=== PATIENT | male | born 1955 | race Caucasian/White ===

== ENCOUNTER 2022-05-22 09:40 | Emergency (ER) | payer MEDICAID, OTHER ==
[2022-05-22 09:50] VITALS: BP 112/71; PULSE 66
[2022-05-22] MEDS ORDERED: Diphtheria,Pertussis(Acell),Tetanus Vaccine 0.5 ML Syringe IM ONE (10:28)
== END 2022-05-22 13:43 | disposition home or self-care (01) ==
LOC: JD.ED 09:40
DX: T20.10XA Burn of first degree of head, face, and neck, unspecified site, initial encounter (principal); J44.9 Chronic obstructive pulmonary disease, unspecified; F17.210 Nicotine dependence, cigarettes, uncomplicated; Z23 Encounter for immunization; Z91.041 Radiographic dye allergy status; X08.8XXA Exposure to other specified smoke, fire and flames, initial encounter
CPT/HCPCS: 36415; 71045; 71045-26; 80053; 85025; 90471; 90715; 99283; 99283-25

== ENCOUNTER 2022-08-19 10:07 | Emergency (ER) | payer MEDICARE, MEDICAID ==
[2022-08-19 11:01] VITALS: BP 123/72; PULSE 52
== END 2022-08-19 12:55 | disposition home or self-care (01) ==
LOC: JD.ED 10:07
DX: J44.1 Chronic obstructive pulmonary disease with (acute) exacerbation (principal); F17.210 Nicotine dependence, cigarettes, uncomplicated; Z91.041 Radiographic dye allergy status; Z79.899 Other long term (current) drug therapy; Z86.16 Personal history of COVID-19; Z20.822 Contact with and (suspected) exposure to COVID-19
CPT/HCPCS: 36415; 71046; 71046-26; 80053; 85025; 86140; 99284; U0002

== ENCOUNTER 2022-10-19 11:25 | Emergency (ER) | payer MEDICARE, MEDICAID ==
[2022-10-19] MEDS ORDERED: Sodium Chloride 0.9% 10 ML Syringe FLUSH PRN (11:46)
[2022-10-19] MEDS ORDERED: Albuterol/Ipratropium 3.0-0.5 MG/3 ML Neb Soln NEB ONE (12:21)
[2022-10-19] MEDS ORDERED: methylPREDNISolone Sodium Succinate 125 MG/2 ML SDV IVPUSH ONE (12:22)
[2022-10-19 14:15] LABS: CORONAVIRUS COVID-19 NAA POSITIVE (NEGATIVE)
[2022-10-19] MEDS ORDERED: methylPREDNISolone Sodium Succinate 125 MG/2 ML SDV IVPUSH PRN (14:43)
[2022-10-19] MEDS ORDERED: diphenhydrAMINE 50 MG/ML SDV IVPUSH PRN (14:43)
[2022-10-19] MEDS ORDERED: Famotidine 20 MG/2 ML SDV IVPUSH PRN (14:43)
[2022-10-19] MEDS ORDERED: EPINEPHrine 1 MG/ML SDV IM PRN (14:43)
[2022-10-19] MEDS ORDERED: Sodium Chloride 0.9% 10 ML Syringe FLUSH SCH (14:45)
[2022-10-19 15:06] VITALS: BP 119/74; PULSE 61
== END 2022-10-19 16:27 | disposition home or self-care (01) ==
LOC: JD.ED 11:25
DX: U07.1 COVID-19 (principal); J44.9 Chronic obstructive pulmonary disease, unspecified; Z72.0 Tobacco use; Z91.041 Radiographic dye allergy status; Z79.899 Other long term (current) drug therapy
CPT/HCPCS: 0240U; 36415; 36600; 71046; 80053; 82803; 83735; 85025; 86140; 93005; 94640; 96374; 99285; J2930; J3490; M0222; Q0222; J7620-GY

== ENCOUNTER 2023-08-24 13:40 | Emergency (ER) | payer MEDICAID, MEDICARE ==
[2023-08-24] MEDS ORDERED: Lactated Ringers 1,000 ML IV ONE (13:41)
[2023-08-24 13:53] VITALS: BP 148/97; PULSE 76
[2023-08-24] MEDS ORDERED: propofoL 100 ML ONE ×2 (14:29→16:12)
[2023-08-24 14:36] LABS: BASOPHILS ABSOLUTE AUTO 0.1 K/mm3 (0.0-0.2); BASOPHILS PERCENT AUTO 0.3 % (0.0-1.0); EOSINOPHILS ABSOLUTE AUTO 0.1 K/mm3 (0.0-0.4); EOSINOPHILS PERCENT AUTO 0.8 % (0.0-6.0); HEMATOCRIT 49.1 % (42.0-52.0); HEMOGLOBIN 16.3 gm/dl (14.0-18.0); IMMATURE GRAN ABSOLUTE AUTO 0.06 K/mm3 (0.00-0.05); IMMATURE GRAN PERCENT AUTO 0.4 % (0.0-0.4); LYMPHOCYTES ABSOLUTE AUTO 2.5 K/mm3 (1.0-4.8); LYMPHOCYTES PERCENT AUTO 16.7 % (24.0-44.0); MEAN CORPUSCULAR HGB CONC 33.2 g/dl (32.0-36.0); MEAN CORPUSCULAR VOLUME 90.3 fl (83.0-99.0); MEAN PLATELET VOLUME 9.5 fl (9.4-12.4); MONOCYTES ABSOLUTE AUTO 0.9 K/mm3 (0.0-0.8); MONOCYTES PERCENT AUTO 6.2 % (0.0-8.0); NEUTROPHILS ABSOLUTE AUTO 11.2 K/mm3 (1.8-7.7); NEUTROPHILS PERCENT AUTO 75.6 % (41.0-71.0); PLATELET COUNT,PLT 249 K/mm3 (150-400); RED BLOOD CELL COUNT 5.44 M/mm3 (4.52-5.90); WHITE BLOOD CELL COUNT,WBC 14.77 K/mm3 (3.9-11.3)
[2023-08-24 14:42] LABS: BASE EXCESS ARTERIAL -9.6 (-2-2.0); BICARBONATE,ARTERIAL 21.6 meq/L (22.0-26.0); O2 SATURATION ARTERIAL 99.2 % (96.0-97.0)
[2023-08-24 14:44] LABS: PROTHROMBIN TIME 9.8 SECONDS (9.7-12.0)
[2023-08-24 14:45] LABS: INR < 0.93; PTT,PARTIAL THROMBOPLSTIN TIME 24.9 SECONDS (21.7-31.4)
[2023-08-24 14:50] LABS: A/G RATIO 1.3 (1-2); ALBUMIN 4.2 g/dl (3.4-5.0); ANION GAP 9.6 (5-15); BILIRUBIN TOTAL 0.7 mg/dL (0.2-1.0); BUN/CREATININE RATIO 18.8 (14-18); CREATININE 0.8 mg/dL (0.7-1.3); EST CRCL DRUG DOSING (CG) 93.53 mL/min; MAGNESIUM 2.2 mg/dL (1.8-2.4); POTASSIUM,K 3.6 mEq/L (3.5-5.1); PROTEIN TOTAL,TP 7.5 g/dl (6.4-8.2)
[2023-08-24] MEDS ORDERED: Propofol 200 MG/20 ML SDV ONE ×2 (15:00)
[2023-08-24] MEDS ORDERED: EPINEPHrine 1:10,000 1 MG/10 ML Syringe ONE ×2 (15:00)
[2023-08-24] MEDS ORDERED: Succinylcholine 200 MG/10 ML MDV ONE (15:00)
[2023-08-24] MEDS ORDERED: Amiodarone 150 MG/3 ML SDV ONE (15:00)
[2023-08-24] MEDS ORDERED: Heparin Sodium 5,000 Units/ML Vial ONE (15:00)
[2023-08-24] MEDS ORDERED: Tenecteplase 50 MG Kit ONE (15:02)
[2023-08-24] MEDS ORDERED: Ketamine 500 MG in Sodium Chloride 0.9% 490 ML IV SCH (15:15)
[2023-08-24] MEDS ORDERED: HEPARIN SODIUM IV SCH (15:20)
[2023-08-24] MEDS ORDERED: D5W IV SCH (15:20)
[2023-08-24 16:10] LABS: BASE EXCESS ARTERIAL 1.6 (-2-2.0); BICARBONATE,ARTERIAL 28.4 meq/L (22.0-26.0)
== END 2023-08-24 16:30 ==
LOC: JD.ED 13:40
DX: I21.3 ST elevation (STEMI) myocardial infarction of unspecified site (principal); M06.9 Rheumatoid arthritis, unspecified; J43.9 Emphysema, unspecified; Z86.16 Personal history of COVID-19; Z91.041 Radiographic dye allergy status; Z79.82 Long term (current) use of aspirin; Z79.899 Other long term (current) drug therapy
CPT/HCPCS: 31500; 36415; 36600; 43752; 51702; 71045; 80053; 82803; 83605; 83735; 84484; 85025; 85610; 85730; 92950; 92977; 93005; 96365; 99285; J0171; J0282; J0330; J1644; J2704; J3101; J3490; J7040; J7120; 93010

== ENCOUNTER 2023-10-07 14:56 | Emergency (ER) | payer MEDICARE, MEDICAID ==
[2023-10-07 16:44] LABS: BASOPHILS PERCENT AUTO 0.5 % (0.0-1.0); EOSINOPHILS ABSOLUTE AUTO 0.2 K/mm3 (0.0-0.4); EOSINOPHILS PERCENT AUTO 2.3 % (0.0-6.0); HEMATOCRIT 38.6 % (42.0-52.0); HEMOGLOBIN 12.1 gm/dl (14.0-18.0); IMMATURE GRAN ABSOLUTE AUTO 0.03 K/mm3 (0.00-0.05); IMMATURE GRAN PERCENT AUTO 0.3 % (0.0-0.4); LYMPHOCYTES ABSOLUTE AUTO 2.5 K/mm3 (1.0-4.8); LYMPHOCYTES PERCENT AUTO 28.5 % (24.0-44.0); MEAN CORPUSCULAR HEMOGLOBIN 28.1 pg (28.0-32.0); MEAN CORPUSCULAR HGB CONC 31.3 g/dl (32.0-36.0); MEAN CORPUSCULAR VOLUME 89.6 fl (83.0-99.0); MEAN PLATELET VOLUME 9.6 fl (9.4-12.4); MONOCYTES ABSOLUTE AUTO 0.8 K/mm3 (0.0-0.8); MONOCYTES PERCENT AUTO 8.7 % (0.0-8.0); NEUTROPHILS ABSOLUTE AUTO 5.2 K/mm3 (1.8-7.7); NEUTROPHILS PERCENT AUTO 59.7 % (41.0-71.0); PLATELET COUNT,PLT 259 K/mm3 (150-400); RED BLOOD CELL COUNT 4.31 M/mm3 (4.52-5.90); WHITE BLOOD CELL COUNT,WBC 8.74 K/mm3 (3.9-11.3)
[2023-10-07 17:05] LABS: INR 0.96; PROTHROMBIN TIME 10.3 SECONDS (9.7-12.0)
[2023-10-07 17:07] LABS: PTT,PARTIAL THROMBOPLSTIN TIME 28.1 SECONDS (21.7-31.4)
[2023-10-07 17:10] LABS: A/G RATIO 0.8 (1-2); ALBUMIN 2.9 g/dl (3.4-5.0); ANION GAP 10.8 (5-15); BILIRUBIN TOTAL 0.4 mg/dL (0.2-1.0); CALCIUM 8.5 mg/dL (8.5-10.1); CREATININE 0.7 mg/dL (0.7-1.3); EST CRCL DRUG DOSING (CG) 105.23 mL/min; POTASSIUM,K 3.8 mEq/L (3.5-5.1); PROTEIN TOTAL,TP 6.5 g/dl (6.4-8.2)
[2023-10-07 17:39] LABS: APPEARANCE,URINE CLEAR (Clear); BILIRUBIN,URINE NEGATIVE (Negative); COLOR,URINE YELLOW (Yellow); GLUCOSE,URINE NEGATIVE (Negative); KETONES,URINE NEGATIVE (Negative); LEUKOCYTE ESTERASE,URINE NEGATIVE (Negative); NITRITE,URINE NEGATIVE (Negative); OCCULT BLOOD,URINE NEGATIVE (Negative); PROTEIN,URINE NEGATIVE (Negative); UROBILINOGEN,URINE 0.2 (0.2-1.0)
[2023-10-07 18:06] LABS: CORONAVIRUS COVID-19 NAA NEGATIVE (NEGATIVE); INFLUENZA A NAA NEGATIVE (NEGATIVE)
[2023-10-07] MEDS ORDERED: Doxycycline Monohydrate 100 MG Cap PO ONE (19:03)
[2023-10-07 19:31] VITALS: BP 104/64; PULSE 65
== END 2023-10-07 19:30 | disposition home or self-care (01) ==
LOC: JD.ED 14:56
DX: J18.9 Pneumonia, unspecified organism (principal); R04.2 Hemoptysis; J44.9 Chronic obstructive pulmonary disease, unspecified; I25.2 Old myocardial infarction; F17.210 Nicotine dependence, cigarettes, uncomplicated; Z20.822 Contact with and (suspected) exposure to COVID-19; Z91.041 Radiographic dye allergy status; Z79.899 Other long term (current) drug therapy; Z79.82 Long term (current) use of aspirin; Z86.16 Personal history of COVID-19
CPT/HCPCS: 0240U; 36415; 71046; 80053; 81003; 84484; 85025; 85610; 85730; 93005; 99284; A9270; 93010

== ENCOUNTER 2024-04-01 18:15 | Emergency (ER) | payer MEDICARE, MEDICAID ==
[2024-04-01 18:44] LABS: BASOPHILS ABSOLUTE AUTO 0.1 K/mm3 (0.0-0.2); BASOPHILS PERCENT AUTO 0.8 % (0.0-1.0); EOSINOPHILS ABSOLUTE AUTO 0.1 K/mm3 (0.0-0.4); EOSINOPHILS PERCENT AUTO 1.7 % (0.0-6.0); HEMATOCRIT 45.7 % (42.0-52.0); IMMATURE GRAN ABSOLUTE AUTO 0.02 K/mm3 (0.00-0.05); IMMATURE GRAN PERCENT AUTO 0.3 % (0.0-0.4); LYMPHOCYTES ABSOLUTE AUTO 3.4 K/mm3 (1.0-4.8); LYMPHOCYTES PERCENT AUTO 46.8 % (24.0-44.0); MEAN CORPUSCULAR HEMOGLOBIN 28.2 pg (28.0-32.0); MEAN CORPUSCULAR HGB CONC 32.8 g/dl (32.0-36.0); MEAN CORPUSCULAR VOLUME 86.1 fl (83.0-99.0); MEAN PLATELET VOLUME 8.9 fl (9.4-12.4); MONOCYTES ABSOLUTE AUTO 0.5 K/mm3 (0.0-0.8); MONOCYTES PERCENT AUTO 7.4 % (0.0-8.0); NEUTROPHILS ABSOLUTE AUTO 3.1 K/mm3 (1.8-7.7); PLATELET COUNT,PLT 232 K/mm3 (150-400); RED BLOOD CELL COUNT 5.31 M/mm3 (4.52-5.90); WHITE BLOOD CELL COUNT,WBC 7.27 K/mm3 (3.9-11.3)
[2024-04-01 18:50] LABS: APPEARANCE,URINE CLEAR (Clear); BILIRUBIN,URINE NEGATIVE (Negative); COLOR,URINE YELLOW (Yellow); GLUCOSE,URINE NEGATIVE (Negative); KETONES,URINE NEGATIVE (Negative); LEUKOCYTE ESTERASE,URINE NEGATIVE (Negative); NITRITE,URINE NEGATIVE (Negative); OCCULT BLOOD,URINE NEGATIVE (Negative); PROTEIN,URINE NEGATIVE (Negative)
[2024-04-01] MEDS: Albuterol/Ipratropium 3.0-0.5 MG/3 ML Neb Soln NEB ONE (18:58)
[2024-04-01] MEDS: Sodium Chloride 0.9% 10 ML Syringe FLUSH PRN (19:09)
[2024-04-01 19:19] LABS: A/G RATIO 1.2 (1-2); ALBUMIN 3.6 g/dl (3.4-5.0); ANION GAP 11.8 (5-15); BILIRUBIN TOTAL 0.4 mg/dL (0.2-1.0); CREATININE 0.9 mg/dL (0.7-1.3); EST CRCL DRUG DOSING (CG) 89.15 mL/min; MAGNESIUM 1.8 mg/dL (1.8-2.4); POTASSIUM,K 3.8 mEq/L (3.5-5.1); PROTEIN TOTAL,TP 6.7 g/dl (6.4-8.2)
[2024-04-01 19:25] LABS: CORONAVIRUS COVID-19 NAA NEGATIVE (NEGATIVE); INFLUENZA A NAA NEGATIVE (NEGATIVE); RESPIRATORY SYNCYTIAL VIR NAA NEGATIVE (NEGATIVE)
[2024-04-01 19:45] LABS: OXYCODONE SCREEN,URINE PRESUMPTIVE POSITIVE (CUT0FF=100); THC SCREEN,URINE 20 NG/ML PRESUMPTIVE POSITIVE (CUTOFF=50)
[2024-04-01 19:46] LABS: AMPHETAMINES SCREEN, URINE NEGATIVE (CUTOFF=500); BARBITURATE SCREEN,URINE NEGATIVE (CUTOFF=200); BENZODIAZEPINES SCREEN,URINE NEGATIVE (CUTOFF=150); BUPRENORPHINE SCREEN,URINE NEGATIVE (CUTOFF=10); METHADONE SCREEN, URINE NEGATIVE (CUT0FF=200); METHAMPHETAMINES SCREEN, URINE NEGATIVE (CUTOFF=500)
[2024-04-01 21:36] VITALS: BP 119/70; PULSE 62
== END 2024-04-01 21:20 | disposition home or self-care (01) ==
LOC: JD.ED 18:15
DX: R07.9 Chest pain, unspecified (principal); R53.1 Weakness; J44.9 Chronic obstructive pulmonary disease, unspecified; M19.90 Unspecified osteoarthritis, unspecified site; F17.210 Nicotine dependence, cigarettes, uncomplicated; Z86.16 Personal history of COVID-19; Z91.041 Radiographic dye allergy status; Z79.82 Long term (current) use of aspirin; Z79.899 Other long term (current) drug therapy; Z90.49 Acquired absence of other specified parts of digestive tract
CPT/HCPCS: 0241U; 36415; 71046; 80053; 80306; 81003; 83735; 83880; 84484; 85025; 93005; 94640; 99285; J3490; 93010; 99284; J7620-GY

== ENCOUNTER 2024-08-13 14:02 | Inpatient (IN) | payer MEDICARE, MEDICAID ==
[2024-08-13 15:03] LABS: CORONAVIRUS COVID-19 NAA NEGATIVE (NEGATIVE); INFLUENZA A NAA NEGATIVE (NEGATIVE); RESPIRATORY SYNCYTIAL VIR NAA NEGATIVE (NEGATIVE)
[2024-08-13] MEDS: Albuterol/Ipratropium 3.0-0.5 MG/3 ML Neb Soln NEB ONE (15:05)
[2024-08-13 16:24] LABS: BASOPHILS PERCENT AUTO 0.3 % (0.0-1.0); EOSINOPHILS PERCENT AUTO 0.1 % (0.0-6.0); HEMATOCRIT 45.8 % (42.0-52.0); HEMOGLOBIN 14.9 gm/dl (14.0-18.0); IMMATURE GRAN ABSOLUTE AUTO 0.04 K/mm3 (0.00-0.05); IMMATURE GRAN PERCENT AUTO 0.3 % (0.0-0.4); LYMPHOCYTES ABSOLUTE AUTO 1.5 K/mm3 (1.0-4.8); LYMPHOCYTES PERCENT AUTO 10.9 % (24.0-44.0); MEAN CORPUSCULAR HEMOGLOBIN 29.5 pg (28.0-32.0); MEAN CORPUSCULAR HGB CONC 32.5 g/dl (32.0-36.0); MEAN CORPUSCULAR VOLUME 90.7 fl (83.0-99.0); MEAN PLATELET VOLUME 9.5 fl (9.4-12.4); MONOCYTES ABSOLUTE AUTO 1.3 K/mm3 (0.0-0.8); MONOCYTES PERCENT AUTO 9.5 % (0.0-8.0); NEUTROPHILS ABSOLUTE AUTO 11.1 K/mm3 (1.8-7.7); NEUTROPHILS PERCENT AUTO 78.9 % (41.0-71.0); PLATELET COUNT,PLT 209 K/mm3 (150-400); RED BLOOD CELL COUNT 5.05 M/mm3 (4.52-5.90); WHITE BLOOD CELL COUNT,WBC 14.01 K/mm3 (3.9-11.3)
[2024-08-13 16:36] LABS: LACTIC ACID 0.6 mmol/L (0.4-2.0)
[2024-08-13] MEDS: Piperacillin/Tazobactam 4.5 GM in Sodium Chloride 0.9% 100 ML IV ONE (16:40)
[2024-08-13 16:42] LABS: A/G RATIO 0.9 (1-2); ALBUMIN 3.4 g/dl (3.4-5.0); ANION GAP 11.1 (5-15); BILIRUBIN TOTAL 0.8 mg/dL (0.2-1.0); BUN/CREATININE RATIO 21.3 (14-18); C-REACTIVE PROTEIN 17.58 mg/dL (<0.30); CALCIUM 8.6 mg/dL (8.5-10.1); CREATININE 0.8 mg/dL (0.7-1.3); POTASSIUM,K 4.1 mEq/L (3.5-5.1); PROTEIN TOTAL,TP 7.1 g/dl (6.4-8.2)
[2024-08-13] MEDS: Sodium Chloride 0.9% 10 ML Syringe FLUSH PRN (16:43)
[2024-08-13] MEDS ORDERED: Sennosides/Docusate Sodium 50-8.6 MG Tab PO PRN (17:55)
[2024-08-13] MEDS ORDERED: Ondansetron 4 MG/2 ML SDV IV PRN (17:55)
[2024-08-13] MEDS ORDERED: Morphine 2 MG/ML SYRINGE IVPUSH PRN (17:55)
[2024-08-13] MEDS ORDERED: Melatonin 3 MG Tab PO PRN (17:55)
[2024-08-13] MEDS: Albuterol 0.083% 2.5 MG/3 ML Neb Soln NEB PRN (19:37)
[2024-08-13] MEDS ORDERED: Fluticasone NASAL Spray 16 GM Bottle NASBOTH PRN (20:18)
[2024-08-13] MEDS: oxyCODONE 5 MG Tab PO PRN (20:21)
[2024-08-13] MEDS ORDERED: Non-Formulary Medication 1 Each (Alendronate [Fosamax] 70 MG/75 ML Bottle) PO SCH (20:30)
[2024-08-13] MEDS ORDERED: predniSONE 10 MG Tab PO SCH (20:30)
[2024-08-13] MEDS: Amitriptyline 25 MG Tab PO SCH (20:47)
[2024-08-13] MEDS: Azithromycin 250 MG Tab PO SCH (20:47)
[2024-08-13] MEDS: Mirtazapine 15 MG Tab PO SCH (20:47)
[2024-08-13] MEDS: Gabapentin 600 MG Tab PO SCH (20:47)
[2024-08-13] MEDS: Nicotine 14 MG/24 Hr Patch TRDERM SCH (20:50)
[2024-08-13] MEDS: rOPINIRole 1 MG Tab PO SCH (20:50)
[2024-08-13] MEDS: Albuterol/Ipratropium 3.0-0.5 MG/3 ML Neb Soln NEB SCH (21:18)
[2024-08-13] MEDS: Formoterol/Mometasone 100-5 MCG 8.8 GM Inhaler INH SCH (21:20)
[2024-08-13] MEDS: atorvaSTATin 40 MG Tab PO SCH (21:52)
[2024-08-13] MEDS: predniSONE 20 MG Tab PO SCH (22:23)
[2024-08-14 04:50] LABS: BASOPHILS PERCENT AUTO 0.2 % (0.0-1.0); EOSINOPHILS PERCENT AUTO 0.2 % (0.0-6.0); HEMATOCRIT 46.1 % (42.0-52.0); IMMATURE GRAN ABSOLUTE AUTO 0.03 K/mm3 (0.00-0.05); IMMATURE GRAN PERCENT AUTO 0.3 % (0.0-0.4); LYMPHOCYTES ABSOLUTE AUTO 0.8 K/mm3 (1.0-4.8); LYMPHOCYTES PERCENT AUTO 6.8 % (24.0-44.0); MEAN CORPUSCULAR HEMOGLOBIN 29.1 pg (28.0-32.0); MEAN CORPUSCULAR HGB CONC 32.5 g/dl (32.0-36.0); MEAN CORPUSCULAR VOLUME 89.3 fl (83.0-99.0); MEAN PLATELET VOLUME 9.8 fl (9.4-12.4); MONOCYTES ABSOLUTE AUTO 0.3 K/mm3 (0.0-0.8); MONOCYTES PERCENT AUTO 2.6 % (0.0-8.0); NEUTROPHILS ABSOLUTE AUTO 10.2 K/mm3 (1.8-7.7); NEUTROPHILS PERCENT AUTO 89.9 % (41.0-71.0); PLATELET COUNT,PLT 234 K/mm3 (150-400); RED BLOOD CELL COUNT 5.16 M/mm3 (4.52-5.90); WHITE BLOOD CELL COUNT,WBC 11.28 K/mm3 (3.9-11.3)
[2024-08-14 05:15] LABS: A/G RATIO 0.8 (1-2); ALBUMIN 3.2 g/dl (3.4-5.0); ANION GAP 13.5 (5-15); BILIRUBIN TOTAL 0.7 mg/dL (0.2-1.0); BUN/CREATININE RATIO 24.3 (14-18); CREATININE 0.7 mg/dL (0.7-1.3); EST CRCL DRUG DOSING (CG) 102.23 mL/min; PHOSPHORUS 2.7 mg/dL (2.6-4.7); POTASSIUM,K 4.5 mEq/L (3.5-5.1)
[2024-08-14] MEDS: Pantoprazole 40 MG Tab.CR PO SCH (06:49)
[2024-08-14] MEDS ORDERED: Non-Formulary Medication 1 Each (Fluticasone/Umeclidin/Vilanter [Trelegy Ellipta 200-62.5- IH SCH (09:00)
[2024-08-14] MEDS: cefTRIAXone 1 GM in Sodium Chloride 0.9% 100 ML IV SCH (09:30)
[2024-08-14] MEDS: Clopidogrel 75 MG Tab PO SCH (09:34)
[2024-08-14] MEDS: Enoxaparin 40 MG/0.4 ML Syringe SUBCUT SCH (09:34)
[2024-08-14] MEDS: Metoprolol Succinate 25 MG Tab.ER PO SCH (09:34)
[2024-08-14] MEDS: guaiFENesin 600 MG Tab.ER PO SCH (09:36)
[2024-08-14] MEDS: Piperacillin/Tazobactam 4.5 GM in Sodium Chloride 0.9% 100 ML IV ONE (12:26)
[2024-08-14] MEDS: Sodium Chloride 3% Inhalation Soln 4 ML Neb NEB SCH (13:38)
[2024-08-14] MEDS: Piperacillin/Tazobactam 4.5 GM in Sodium Chloride 0.9% 100 ML IV SCH (15:11)
[2024-08-14] MEDS: Phosphorus #1 250 MG Tab PO ONE (19:16)
[2024-08-15 05:25] LABS: ANION GAP -1.5 (5-15); CALCIUM 8.7 mg/dL (8.5-10.1); CREATININE 0.8 mg/dL (0.7-1.3); EST CRCL DRUG DOSING (CG) 87.38 mL/min; PHOSPHORUS 3.2 mg/dL (2.6-4.7); POTASSIUM,K 4.5 mEq/L (3.5-5.1)
[2024-08-15] MEDS: Acetaminophen 325 MG Tab PO PRN (14:12)
[2024-08-15] MEDS: methylPREDNISolone Sodium Succinate 40 MG/1 ML SDV IVPUSH SCH (15:42)
[2024-08-16 08:57] LABS: ANION GAP 11.9 (5-15); BUN/CREATININE RATIO 27.8 (14-18); CALCIUM 9.5 mg/dL (8.5-10.1); CREATININE 0.9 mg/dL (0.7-1.3); EST CRCL DRUG DOSING (CG) 77.47 mL/min
[2024-08-16 09:06] LABS: POTASSIUM,K 3.9 mEq/L (3.5-5.1)
[2024-08-16 13:07] VITALS: BP 119/62; PULSE 83
== END 2024-08-16 14:55 | disposition home or self-care (01) | DRG 193 ==
LOC: JD.ED 14:02 → JD.MS 17:55
PROVIDERS: ADMIT Student in an Organized Health Care Education/Training Program; ATTEND Student in an Organized Health Care Education/Training Program
DX: J18.9 Pneumonia, unspecified organism (principal); J96.01 Acute respiratory failure with hypoxia; J44.0 Chronic obstructive pulmonary disease with (acute) lower respiratory infection; J44.1 Chronic obstructive pulmonary disease with (acute) exacerbation; K21.9 Gastro-esophageal reflux disease without esophagitis; M19.90 Unspecified osteoarthritis, unspecified site; I25.2 Old myocardial infarction; Z79.82 Long term (current) use of aspirin; G89.29 Other chronic pain; M54.9 Dorsalgia, unspecified; E78.00 Pure hypercholesterolemia, unspecified; I50.9 Heart failure, unspecified; F41.9 Anxiety disorder, unspecified; F32.A Depression, unspecified; I25.10 Atherosclerotic heart disease of native coronary artery without angina pectoris; F17.210 Nicotine dependence, cigarettes, uncomplicated; Z95.5 Presence of coronary angioplasty implant and graft; Z79.02 Long term (current) use of antithrombotics/antiplatelets; Z86.16 Personal history of COVID-19; Z90.89 Acquired absence of other organs; Z79.52 Long term (current) use of systemic steroids; Z91.041 Radiographic dye allergy status; Z98.890 Other specified postprocedural states; Z79.899 Other long term (current) drug therapy
CPT/HCPCS: 0241U; 36415; 71045; 71045-26; 71046; 71046-26; 80048; 80053; 83605; 83735; 83880; 84100; 85025; 86140; 87040; 87899; 93005; 93010; 94640; 94667; 94668; 94761; 96365; 99285; 99285-25; A9270-GY; J0696; J1650; J2543; J2919; J3490; J7512; J7620-GY